=== PATIENT | male | born 1960 | race Caucasian/White ===

== ENCOUNTER 2025-03-11 17:32 | Observation (INO) | payer OTHER ==
--- NOTE | 2025-03-11 17:45 | ED ---
General Adult HPI - General Chief complaint: Chest Pain Stated complaint: Syncope Time Seen by Provider: 03/11/25 17:44 Source: patient, family Mode of arrival: wheelchair Limitations: no limitations - History of Present Illness Initial comments: Patient brought to the ED by his for evaluation. Patient states that he was fishing on [place] at about noon today when he suddenly started to "not feel well". Patient states that he sat down and then became lightheaded and diaphoretic and had a syncopal episode. states that they could not feel a pulse, so they started CPR on the patient. states that the patient regained consciousness after about a minute or so. She states that the captain then brought their boat back to shore, and she drove the patient straight to our hospital. Patient states that he has been having some mild chest pressure and dyspnea intermittently over the past 4 days, and he admits to having mild chest pressure at present. Patient also states that he has felt nauseated and has been vomiting since his syncopal episode earlier today. Patient states that he took aspirin 325 mg PO x 2 earlier today. Patient states that he had 2 cardiac stents placed a little over a year ago. Patient fever or chills, headache, focal numbness/weakness/neuro deficit, neck/arm/jaw/back pain, pleuritic pain, cough or cold symptoms, palpitations, abdominal pain, diarrhea or constipation, bloody or melanotic stool, hematemesis, dysuria or urinary symptoms, leg or calf swelling or pain, or any other symptoms or complaints. - Related Data Home Medications Medication Instructions Recorded Confirmed ALPRAZolam [Xanax] 0.5 mg PO BID PRN 03/11/25 03/11/25 Clopidogrel [Plavix] 75 mg PO DAILY 03/11/25 03/11/25 Losartan/Hydrochlorothiazide 1 tab PO DAILY 03/11/25 03/11/25 [Hyzaar 100-25 Tablet] Metoprolol Succinate (ER) [Toprol 50 mg PO HS 03/11/25 03/11/25 Xl] Pantoprazole [Protonix] 40 mg PO DAILY 03/11/25 03/11/25 Rosuvastatin [Crestor] 20 mg PO HS 03/11/25 03/11/25 traZODone HCL [Desyrel] 50 mg PO 03/11/25 03/11/25 Allergies Allergy/AdvReac Type Severity Reaction Status Date / Time No Known Allergies Allergy Verified 03/11/25 19:24 Review of Systems ROS Statement: Those systems with pertinent positive or pertinent negative responses have been documented in the HPI. ROS Other: All systems not noted in ROS Statement are negative. Past Medical History Past Medical History: Atrial Fibrillation, Cancer, Hypertension Additional Past Medical History / Comment(s): melanoma. History of Any Multi-Drug Resistant Organisms: None Reported Past Surgical History: Heart Catheterization With Stent Past Psychological History: No Psychological Hx Reported Smoking Status: Never smoker Past Alcohol Use History: Rare Past Drug Use History: None Reported General Exam Limitations: no limitations General appearance: alert, in no apparent distress Head exam: Present: atraumatic Eye exam: Present: normal appearance ENT exam: Present: mucous membranes moist Neck exam: Present: other (Trachea is in midline) Respiratory exam: Present: normal lung sounds bilaterally. Absent: respiratory distress, wheezes, rales, rhonchi, stridor, chest wall tenderness Cardiovascular Exam: Present: regular rate, normal rhythm, normal heart sounds, other (Normal radial pulses bilaterally) GI/Abdominal exam: Present: soft. Absent: distended, tenderness, guarding Extremities exam: Present: other (Negative Homans' sign bilaterally). Absent: tenderness, pedal edema, calf tenderness Neurological exam: Present: alert, oriented X3. Absent: motor sensory deficit Skin exam: Present: warm, dry, normal color Course Vital Signs 03/11/25 03/11/25 17:35 19:53 Temperature 98.7 F Pulse Rate 76 55 L Respiratory 18 18 Rate Blood Pressure 95/60 96/66 O2 Sat by Pulse 98 98 Oximetry - Reevaluation(s) Reevaluation #1: 03/11/25 19:34 Case, H&P, test results and prehospital/ED management were discussed with TIMBER SELECTOR Kimmy Huang. She accepts hospital admission on behalf of [facility]. She agrees with cardiology consultation. She has no further recommendations at this time. 03/11/25 20:35 Given that the patient's reports initiating CPR on the patient, Dr. Castro (commercial real estate assistant) was contacted from the ED to discuss if the patient should be admitted to the ICU. Case and test results were discussed with Dr. Castro. He does not feel that ICU admission is warranted, and he recommends admitting the patient to the telemetry floor at this time. 03/11/25 20:47 Patient states that he feels fine at this time and he denies having any symptoms currently. Patient remains alert and breathing comfortably. Patient and are aware of the patient's test results and my discussions as above. Patient agrees with hospital admission at this time. EKG Findings - EKG Comments: EKG Findings:: ED physician interpretation (interpreted by me): Normal sinus rhythm, ventricular rate of 73 bpm, no ectopy, normal IN and QRS intervals, slightly prolonged QTc interval of 462 ms, normal axis, nonspecific ST abnormality, no ST elevation Medical Decision Making - Medical Decision Making Was pt. sent in by a medical professional or institution (, PA, TIMBER SELECTOR, urgent care, hospital, or shelter...) When possible be specific @ -No Did you speak to anyone other than the patient for history (EMS, parent, family, police, friend...)? What history was obtained from this source @ -History was also obtained from the patient's . Did you review nursing and triage notes (agree or disagree)? Why? @ -I reviewed and agree with nursing and triage notes Were old charts reviewed (outside hosp., previous admission, EMS record, old EKG, old radiological studies, urgent care reports/EKG's, shelter records)? Report findings @ -No old charts were reviewed Differential Diagnosis (chest pain, altered mental status, abdominal pain women, abdominal pain men, vaginal bleeding, weakness, fever, dyspnea, syncope, headache, dizziness, GI bleed, back pain, seizure, CVA, palpatations, mental health, musculoskeletal)? @ -Differential Syncope: Valvular disease, hypertrophic cardiomyopathy, tamponade, tachycardia, bradycard ia, UT, dysrhythmia, hypovolemia, heat exhaustion, CAD, cardiac arrest, anemia, hypoglycemia, this is not meant to be an all-inclusive list. EKG interpreted by me (3pts min.). @ -As above X-rays interpreted by me (1pt min.). @ -Chest x-ray was reviewed myself and shows no acute cardiopulmonary disease. I agree with the radiologist's interpretation as above. CT interpreted by me (1pt min.). @ -None done U/S interpreted by me (1pt. min.). @ -None done What testing was considered but not performed or refused? (CT, X-rays, U/S, labs)? Why? @ -None What meds were considered but not given or refused? Why? @ -None Did you discuss the management of the patient with other professionals (shadi dodson i.e. , PA, TIMBER SELECTOR, lab, RT, psych nurse, social worker school, head of human resources, teacher, weapons officer naval activity, gearcase assembler)? Give summary @ -As above. Was smoking cessation discussed for >3mins.? @ -No Was critical care preformed (if so, how long)? @ -Yes, 35 minutes. Were there social determinants of health that impacted care today? How? (Homelessness, low income, unemployed, alcoholism, drug addiction, tra nsportation, low edu. Level, literacy, decrease access to med. care, correction, rehab)? @ -No Was there de-escalation of care discussed even if they declined (Discuss DNR or withdrawal of care, Hospice)? DNR status @ -No What co-morbidities impacted this encounter? (DM, HTN, Smoking, COPD, CAD, Cancer, CVA, ARF, Chemo, Hep., AIDS, mental health diagnosis, sleep apnea, morbid obesity)? @ -None Was patient admitted / discharged? Hospital course, mention meds given and route, prescriptions, significant lab abnormalities, going to OR and other pertinent info. @ -Patient's EKG and chest x-ray are fairly unremarkable. Patient's labs demonstrate renal insufficiency, but are otherwise fairly unremarkable. Patient's troponin is negative. Patient states that he took 2 full dose aspirin prior to coming to the ED today. Given the patient's cardiac history, chest pain and reported syncope, will admit the patient to the hospital for cardiac monitoring, serial troponins, cardiology consultation and further evaluation. Patient agrees with this plan. DESIREE Huang has accepted hospital admis eliezer. Dr. Castro (commercial real estate assistant) was contacted from the ED test discussed need for ICU admission given CPR was initiated by the patient's family, but he does not feel that ICU admission is indicated at this time. Undiagnosed new problem with uncertain prognosis? @ -No Drug Therapy requiring intensive monitoring for toxicity (Heparin, Nitro, Insulin, Cardizem)? @ -No Were any procedures done? @ -No Diagnosis/symptom? @ -Chest pain, syncope Acute, or Chronic, or Acute on Chronic? @ -Acute Uncomplicated (without systemic symptoms) or Complicated (systemic symptoms)? @ -Default Side effects of treatment? @ -No Exacerbation, Progression, or Severe Exacerbation? @ -No Poses a threat to life or bodily function? How? (Chest pain, USA, UT, pneumonia, PE, COPD, DKA, ARF, appy, cholecystitis, CVA, Diverticulitis, Homicidal, Suicidal, threat to staff... and all critical care pts) @ -Possibly Diagnosis/symptom? @ -Renal insufficiency Acute, or Chronic, or Acute on Chronic? @ -Default Uncomplicated (without systemic symptoms) or Complicated (systemic symptoms)? @ -Default Side effects of treatment? @ -None Exacerbation, Progression, or Severe Exacerbation] @ -No Poses a threat to life or bodily function? @ -No - Lab Data Result diagrams: 03/11/25 18:09 03/11/25 18:09 Lab Results 03/11/25 03/11/25 03/11/25 Range/Units 18:09 18:09 18:09 WBC 9.15 (4.50-10.00) 10*3/uL RBC 4.60 (4.40-5.60) 10*6/uL Hgb 14.4 (13.0-17.0) g/dL Hct 40.1 (39.6-50.0) % MCV 87.2 (80.0-97.0) fL MCH 31.3 (27.0-32.0) pg MCHC 35.9 (32.0-37.0) g/dL Plt Count 161 (140-440) 10*3/uL MPV 10.0 (9.5-12.2) fL Immature Gran % (Auto) 0.2 % Neutrophils % 79.2 % Lymphocytes % 14.1 % Monocytes % 6.1 % Eosinophils % 0.1 % Basophils % 0.3 % Immature Gran # 0.02 (0.00-0.04) 10*3/uL Neutrophils # 7.24 (1.80-7.70) 10*3/uL Lymphocytes # 1.29 (0.90-5.00) 10*3/uL Monocytes # 0.56 (0.20-1.00) 10*3/uL Eosinophils # 0.01 L (0.04-0.35) 10*3/uL Basophils # 0.03 (0.00-0.10) 10*3/uL PT 10.9 (10.0-12.5) sec INR 1.0 (<1.2) APTT 22.4 (22.0-30.0) sec Sodium 135 L (137-145) mmol/L Potassium 4.2 (3.5-5.1) mmol/L Chloride 101 (98-107) mmol/L Carbon Dioxide 19 L (22-30) mmol/L Anion Gap 15 mmol/L BUN 33 H (9-20) mg/dL Creatinine 2.73 H (0.66-1.25) mg/dL Est GFR (CKD-EPI)AfAm 28 (>60 ml/min/1.73 sqM) Est GFR (CKD-EPI)NonAf 24 (>60 ml/min/1.73 sqM) Glucose 120 H (74-99) mg/dL Plasma Lactic Acid Castillo (0.7-2.0) mmol/L Calcium 9.9 (8.4-10.2) mg/dL Magnesium 2.0 (1.6-2.3) mg/dL Total Bilirubin 3.1 H (0.2-1.3) mg/dL AST 19 (17-59) U/L ALT 22 (4-49) U/L Alkaline Phosphatase 52 (38-126) U/L Troponin I (0.000-0.034) ng/mL NT-Pro-B Natriuret Pep 327 pg/mL Total Protein 7.4 (6.3-8.2) g/dL Albumin 4.7 (3.5-5.0) g/dL 03/11/25 03/11/25 Range/Units 18:09 18:09 WBC (4.50-10.00) 10*3/uL RBC (4.40-5.60) 10*6/uL Hgb (13.0-17.0) g/dL Hct (39.6-50.0) % MCV (80.0-97.0) fL MCH (27.0-32.0) pg MCHC (32.0-37.0) g/dL Plt Count (140-440) 10*3/uL MPV (9.5-12.2) fL Immature Gran % (Auto) % Neutrophils % % Lymphocytes % % Monocytes % % Eosinophils % % Basophils % % Immature Gran # (0.00-0.04) 10*3/uL Neutrophils # (1.80-7.70) 10*3/uL Lymphocytes # (0.90-5.00) 10*3/uL Monocytes # (0.20-1.00) 10*3/uL Eosinophils # (0.04-0.35) 10*3/uL Basophils # (0.00-0.10) 10*3/uL PT (10.0-12.5) sec INR (<1.2) APTT (22.0-30.0) sec Sodium (137-145) mmol/L Potassium (3.5-5.1) mmol/L Chloride (98-107) mmol/L Carbon Dioxide (22-30) mmol/L Anion Gap mmol/L BUN (9-20) mg/dL Creatinine (0.66-1.25) mg/dL Est GFR (CKD-EPI)AfAm (>60 ml/min/1.73 sqM) Est GFR (CKD-EPI)NonAf (>60 ml/min/1.73 sqM) Glucose (74-99) mg/dL Plasma Lactic Acid Castillo 0.9 (0.7-2.0) mmol/L Calcium (8.4-10.2) mg/dL Magnesium (1.6-2.3) mg/dL Total Bilirubin (0.2-1.3) mg/dL AST (17-59) U/L ALT (4-49) U/L Alkaline Phosphatase (38-126) U/L Troponin I <0.012 (0.000-0.034) ng/mL NT-Pro-B Natriuret Pep pg/mL Total Protein (6.3-8.2) g/dL Albumin (3.5-5.0) g/dL - Radiology Data Chest x-ray: Critical Care Time Critical Care Time: Yes Total Critical Care Time: 35 Disposition Clinical Impression: Chest pain, Syncope, Renal insufficiency Disposition: ADMITTED IP TO THIS [facility] Condition: Stable Is patient prescribed a controlled substance at d/c from ED?: No Time of Disposition: 20:37
[2025-03-11 18:15] LABS: Basophils # (A) 0.03 10*3/uL (0.00-0.10); Basophils % (A) 0.3 %; Eosinophils # (A) 0.01 10*3/uL (0.04-0.35); Eosinophils % (A) 0.1 %; HCT 40.1 % (39.6-50.0); HGB 14.4 g/dL (13.0-17.0); Lymphocytes # (A) 1.29 10*3/uL (0.90-5.00); Lymphocytes % (A) 14.1 %; MCH 31.3 pg (27.0-32.0); MCHC 35.9 g/dL (32.0-37.0); MCV 87.2 fL (80.0-97.0); Monocytes # (A) 0.56 10*3/uL (0.20-1.00); Monocytes % (A) 6.1 %; Neutrophils # (A) 7.24 10*3/uL (1.80-7.70); Neutrophils % (A) 79.2 %; Platelet Count 161 10*3/uL (140-440); RBC 4.60 10*6/uL (4.40-5.60); RDW 12.4 % (11.5-14.5); WBC 9.15 10*3/uL (4.50-10.00)
[2025-03-11 18:29] LABS: ALT 22 U/L (4-49); AST 19 U/L (17-59); African American GFR (CKD) 28 (>60 ml/min/1.73 sqM); Albumin 4.7 g/dL (3.5-5.0); Alkaline Phosphatase 52 U/L (38-126); Anion Gap 15 mmol/L; Blood Urea Nitrogen 33 mg/dL (9-20); Calcium 9.9 mg/dL (8.4-10.2); Carbon Dioxide 19 mmol/L (22-30); Chloride 101 mmol/L (98-107); Glucose 120 mg/dL (74-99); Magnesium 2.0 mg/dL (1.6-2.3); Non-African American GFR(CKD) 24 (>60 ml/min/1.73 sqM); Potassium 4.2 mmol/L (3.5-5.1); Sodium 135 mmol/L (137-145); Total Protein 7.4 g/dL (6.3-8.2)
[2025-03-11 18:31] LABS: INR 1.0 (<1.2); Partial Thromboplastin Time 22.4 sec (22.0-30.0); Prothrombin Time 10.9 sec (10.0-12.5)
[2025-03-11 18:37] LABS: NT-Pro-B-Type Natriuretic Pept 327 pg/mL
--- NOTE | 2025-03-11 18:57 | XR ---
EXAMINATION TYPE: XR chest 2V DATE OF EXAM: 03/11/2025 6:34 PM COMPARISON: None. CLINICAL INDICATION: Male, 64 years old with history of Chest Pain: Shortness of breath TECHNIQUE: XR chest 2V views of the chest are obtained. FINDINGS: Scattered senescent parenchymal changes noted. Hyperinflation compatible with COPD. No evidence for infiltrate. No evidence for atelectasis. Heart size is stable. Mediastinal structures are stable and grossly unremarkable. No evidence for hilar prominence. Degenerative changes dorsal spine. IMPRESSION: 1. No evidence for acute pulmonary disease. [facility], , 03/11/2025 6:54 PM
[2025-03-11] MEDS: ONDANSETRON 4 MG/2 ML VIAL IVP STA (18:59)
[2025-03-11] MEDS: SODIUM CHLORIDE 0.9% 1,000 ML IV ONE (19:02)
[2025-03-11] MEDS ORDERED: NALOXONE 0.4 MG/ML 1 ML VIAL IV PRN (20:37)
[2025-03-12 06:49] LABS: Basophils # (A) 0.02 10*3/uL (0.00-0.10); Basophils % (A) 0.3 %; Eosinophils # (A) 0.07 10*3/uL (0.04-0.35); Eosinophils % (A) 1.2 %; HCT 40.2 % (39.6-50.0); HGB 14.0 g/dL (13.0-17.0); Lymphocytes # (A) 1.46 10*3/uL (0.90-5.00); Lymphocytes % (A) 24.3 %; MCH 31.3 pg (27.0-32.0); MCHC 34.8 g/dL (32.0-37.0); MCV 89.9 fL (80.0-97.0); Monocytes # (A) 0.39 10*3/uL (0.20-1.00); Monocytes % (A) 6.5 %; Neutrophils # (A) 4.07 10*3/uL (1.80-7.70); Neutrophils % (A) 67.5 %; Platelet Count 147 10*3/uL (140-440); RBC 4.47 10*6/uL (4.40-5.60); RDW 12.5 % (11.5-14.5); WBC 6.02 10*3/uL (4.50-10.00)
[2025-03-12 07:04] LABS: ALT 18 U/L (4-49); AST 19 U/L (17-59); African American GFR (CKD) 42 (>60 ml/min/1.73 sqM); Albumin 4.5 g/dL (3.5-5.0); Alkaline Phosphatase 46 U/L (38-126); Anion Gap 8 mmol/L; Blood Urea Nitrogen 30 mg/dL (9-20); Calcium 9.4 mg/dL (8.4-10.2); Carbon Dioxide 26 mmol/L (22-30); Chloride 103 mmol/L (98-107); Glucose 120 mg/dL (74-99); Non-African American GFR(CKD) 37 (>60 ml/min/1.73 sqM); Potassium 4.5 mmol/L (3.5-5.1); Sodium 137 mmol/L (137-145); Total Protein 6.8 g/dL (6.3-8.2)
[2025-03-12] MEDS ORDERED: ALPRAZolam 0.5 MG TAB PO PRN (08:32)
[2025-03-12] MEDS ORDERED: NON FORMULARY DRUG (Losartan/Hydrochlorothiazide [Hyzaar 100-25 Tablet] 1 EACH Tablet) PO SCH (09:00)
[2025-03-12] MEDS: CLOPIDOGREL 75 MG TAB PO SCH (09:21)
[2025-03-12] MEDS: PANTOPRAZOLE 40 MG TABLET PO SCH (09:21)
[2025-03-12] MEDS: SODIUM CHLORIDE 0.9% 1,000 ML IV SCH (09:22)
--- NOTE | 2025-03-12 09:36 | P.CRDCN ---
History of Present Illness Consult date: 03/12/25 History of present illness: The patient is a pleasant 64-year-old gentleman with a past medical history significant for CAD with prior stenting performed at [place] with unknown details as well as hypertension and dyslipidemia and anxiety. He was in his usual state of health yesterday when he was at fishing trip and suddenly he did have an episode of loss of consciousness. Before that and for the last few weeks he has been experiencing symptoms of chest discomfort and shortness of breath appear to be exertional and nonexertional with no dizziness or lightheadedness and no feeling of heart racing or fluttering. He was brought to the emergency department where further evaluation was performed including an EKG showing sinus mechanism with no significant ST or T wave abnormalities and troponin came to be unremarkable and the rest of the workup came into unre markable beside creatinine came to be elevated but suddenly has been trending down could be secondary to dehydration. The physical examination is remarkable for pansystolic murmur at the apical area with the rest of the examination appears to be unremarkable Assessment An episode of syncope could be secondary to dehydration versus vasovagal Significant systolic murmur on examination CAD as described above Acute renal failure which has been improving Plan Continue the current medical regimen Obtain an echo Further recommendation to follow the echocardiogram Past Medical History Past Medical History: Atrial Fibrillation, Cancer, Hypertension Additional Past Medical History / Comment(s): melanoma. History of Any Multi-Drug Resistant Organisms: None Reported Past Surgical History: Heart Catheterization With Stent Past Psychological History: No Psychological Hx Reported Smoking Status: Never smoker Past Alcohol Use History: Rare Past Drug Use History: None Reported Medications and Allergies Home Medications Medication Instructions Recorded Confirmed Type ALPRAZolam [Xanax] 0.5 mg PO BID PRN 03/11/25 03/11/25 History Clopidogrel [Plavix] 75 mg PO DAILY 03/11/25 03/11/25 History Losartan/Hydrochlorothiazide 1 tab PO DAILY 03/11/25 03/11/25 History [Hyzaar 100-25 Tablet] Metoprolol Succinate (ER) [Toprol 50 mg PO HS 03/11/25 03/11/25 History Xl] Pantoprazole [Protonix] 40 mg PO DAILY 03/11/25 03/11/25 History Rosuvastatin [Crestor] 20 mg PO HS 03/11/25 03/11/25 History traZODone HCL [Desyrel] 50 mg PO HS 03/11/25 03/11/25 History Allergies Allergy/AdvReac Type Severity Reaction Status Date / Time No Known Allergies Allergy Verified 03/11/25 19:24 Physical Exam Vitals: Vital Signs Temp Pulse Resp BP Pulse Ox 03/12/25 08:17 60 16 93/59 95 03/12/25 07:16 98.3 F 70 16 114/70 97 03/12/25 06:25 54 L 03/12/25 06:24 47 L 17 93/56 97 03/11/25 23:53 56 L 17 100/67 96 03/11/25 19:53 55 L 18 96/66 98 03/11/25 17:35 98.7 F 76 18 95/60 98 Intake and Output 03/11/25 03/12/25 03/12/25 22:59 06:59 14:59 Other: Weight 88.451 kg Results 03/12/25 06:22 03/12/25 06:22 Cardiac Enzymes 03/11/25 03/11/25 03/11/25 Range/Units 18:09 18:09 22:13 AST 19 (17-59) U/L Troponin I <0.012 <0.012 (0.000-0.034) ng/mL 03/12/25 03/12/25 Range/Units 00:00 06:22 AST 19 (17-59) U/L Troponin I <0.012 (0.000-0.034) ng/mL Coagulation 03/11/25 Range/Units 18:09 PT 10.9 (10.0-12.5) sec APTT 22.4 (22.0-30.0) sec CBC 03/11/25 03/12/25 Range/Units 18:09 06:22 WBC 9.15 6.02 (4.50-10.00) 10*3/uL RBC 4.60 4.47 (4.40-5.60) 10*6/uL Hgb 14.4 14.0 (13.0-17.0) g/dL Hct 40.1 40.2 (39.6-50.0) % Plt Count 161 147 (140-440) 10*3/uL Comprehensive Metabolic Panel 03/11/25 03/12/25 Range/Units 18:09 06:22 Sodium 135 L 137 (137-145) mmol/L Potassium 4.2 4.5 (3.5-5.1) mmol/L Chloride 101 103 (98-107) mmol/L Carbon Dioxide 19 L 26 (22-30) mmol/L BUN 33 H 30 H (9-20) mg/dL Creatinine 2.73 H 1.92 H (0.66-1.25) mg/dL Glucose 120 H 120 H (74-99) mg/dL Calcium 9.9 9.4 (8.4-10.2) mg/dL AST 19 19 (17-59) U/L ALT 22 18 (4-49) U/L Alkaline Phosphatase 52 46 (38-126) U/L Total Protein 7.4 6.8 (6.3-8.2) g/dL Albumin 4.7 4.5 (3.5-5.0) g/dL Current Medications Generic Name Dose Route Start Last Admin Trade Name Freq PRN Reason Stop Dose Admin Alprazolam 0.5 mg 03/12/25 08:32 Alprazolam 0.5 Mg Tab PO BID PRN Anxiety Aspirin 81 mg 03/12/25 09:45 Aspirin 81 Mg PO DAILY CARLOS Atorvastatin Calcium 40 mg 03/12/25 21:00 Atorvastatin 40 Mg Tab PO HS CARLOS Clopidogrel Bisulfate 75 mg 03/12/25 09:00 03/12/25 09:21 Clopidogrel 75 Mg Tab PO 75 mg DAILY CARLOS Administration Sodium Chloride 1,000 mls @ 100 mls/hr 03/12/25 08:45 03/12/25 09:22 Saline 0.9% IV 100 mls/hr .Q10H CARLOS Administration Naloxone HCl 0.2 mg 03/11/25 20:37 Naloxone 0.4 Mg/Ml 1 Ml Vial IV Q2M PRN Opioid Reversal Pantoprazole Sodium 40 mg 03/12/25 09:00 03/12/25 09:21 Pantoprazole 40 Mg Tablet PO 40 mg [id number] CARLOS Administration Trazodone HCl 50 mg 03/12/25 21:00 Trazodone Hcl 50 Mg Tab PO HS CARLOS Intake and Output 03/11/25 03/12/25 03/12/25 22:59 06:59 14:59 Other: Weight 88.451 kg 03/12/25 06:22 03/12/25 06:22
[2025-03-12] MEDS: ASPIRIN 81 MG PO SCH (10:09)
[2025-03-12] MEDS: HEPARIN SODIUM,PORCINE 5,000 UNIT/ML 1 ML VIAL SQ SCH (10:10)
--- NOTE | 2025-03-12 14:02 | P.HPIM ---
History of Present Illness H&P Date: 03/12/25 Patient is a 64-year-old male with A-fib (Plavix), hypertension, CAD with x 2 stent placement (January and February 2024 Dr Cano), anxiety here for evaluation of loss of consciousness. Patient reported that he was fishing on [place] about 12 noon on the day of admission when he suddenly began "not to feel well". He noted associated lightheadedness and diaphoresis. He then lost consciousness and his could not feel a pulse and they began CPR. Reported he was seen that he did not hit his head. He regained consciousness after a minute and he began to have nausea and multiple episodes of nonbloody nonbilious vomiting and his "head was spinning". Patient also reported that over the past 4 days, he has been having episodes of minute to hours of midsternal chest pressure nonradiating with intermittent a shortness of breath. Denied fever, chills, focal weakness, palpitations,extremity swelling, abdominal pain, diarrhea, constipation, dysuria, hematuria, urinary frequency, loss of defecation or urination control, vision changes, speech changes. On admission: Vitals: Temp 98.7 F, WI 76, BP 95/60, RR 18, O2 saturation 98% on room Labs: WBC 9.15, hemoglobin 14.4, platelets 161, sodium 135, potassium 4.2, bicarb 19, BUN 33, creatinine 2.7, glucose 120, total bilirubin 3.1, magnesium 2, troponin less than 0.0 12, proBNP 11/30/2026. Liver enzymes WNL. Coagulation panel WNL. Imaging: EKG independently interpreted showed sinus rhythm with a rate of 73 bpm, noted PAC, normal axis, no ST-T changes, QTc 462 MS. Chest x-ray showed no evidence for acute pulmonary disease. ED documentation reviewed. Review of systems: Pertinent positives and negatives as discussed in HPI, a complete review of systems was performed and all other systems are negative. Social history: Tobacco: Never smoker Alcohol: Occasional alcohol intake Recreational drugs: Denied history of recreational or illicit drug use Travel: No recent prolonged travel Physical examination: Vital signs reviewed General: non toxic, no distress, appears at stated age, on room air Derm: no unusual rashes/lesions, warm Head: atraumatic, normocephalic, symmetric Eyes: EOMI, anicteric sclera, pupils equal round reactive to light ENT: Nose and ears atraumatic Neck: No cervical lymphadenopathy, trachea midline, supple Mouth: no lip lesion, mucus membranes moist Cardiovascular: S1S2 reg, 3/6 holosystolic murmur heard on Right ICS and apical area Lungs: CTA bilateral, no rhonchi, no rales, no accessory muscle use Abdominal: soft, nondistended, nontender to palpation, no guarding Ext: muscle strength 5 out of 5 in all 4 extremities grossly, no gross muscle atrophy, no contractures, positive dorsalis pedis pulse bilateral, no edema Neuro: CN II-XI grossly intact, no gross focal neuro deficits Psych: Alert and oriented x 3, appropriate affect and mood Assessment/Plan: 64-year-old male with A-fib on anticoagulation, CAD and anxiety here for evaluation of loss of consciousness found to have murmur on physical examination, with THAIS and hypotensive on admission. The patient is admitted with an anticipated greater than than 2 midnight stay for evaluation of syncope and THAIS Active: # Syncope, rule out cardiac, metabolic, vasovagal causes #Sinus bradycardia #Holosystolic murmur in right ICS and apex EKG independently interpreted showed sinus rhythm with noted PAC, no ST-T garibay es, QTc 462 MS Chest x-ray showed no evidence for acute pulmonary disease. Cardiac telemetry Supplemental oxygen as needed Check orthostatics Check d-dimer Hold antihypertensives Echocardiogram ordered Cardiology consulted in the ED #Acute Kidney Injury, prerenal BUN 33, creatinine 2.7. Now improved creatinine to 1.9 Monitor UO and renal function Avoid nephrotoxic agents IVF 0.9 normal saline 100 cc/h Chronic Conditions: # A-fib #Hypertension #CAD with x 2 stent placement #Anxiety Continue home clopidogrel, rosuvastatin, pantoprazole, trazodone and alprazolam Hold Hyzaar DVT ppx: Heparin subcu CODE STATUS: Full Discussed with: Patient Anticipated discharge place: Home Kimmy Lerma MD PGY-1 Internal Medicine Dictation was produced using [employer] dictation software. please excuse any grammatical, word or spelling errors. Attestation I have seen and examined this patient with my resident , discussed the same with the resident/ATTILA, and agree with the dictator's assessment and plan as written Dr. Moises ferrer Past Medical History Past Medical History: Atrial Fibrillation, Cancer, Hypertension Additional Past Medical History / Comment(s): melanoma. History of Any Multi-Drug Resistant Organisms: None Reported Past Surgical History: Heart Catheterization With Stent Past Psychological History: No Psychological Hx Reported Smoking Status: Never smoker Past Alcohol Use History: Rare Past Drug Use History: None Reported - Past Family History Father Family Medical History: Cancer, Diabetes Mellitus, Myocardial Infarction ([place]) Additional Family Medical History / Comment(s): prostate and skin cancer Mother Family Medical History: Cancer Additional Family Medical History / Comment(s): lung cancer Medications and Allergies Home Medications Medication Instructions Recorded Confirmed Type ALPRAZolam [Xanax] 0.5 mg PO BID PRN 03/11/25 03/11/25 History Clopidogrel [Plavix] 75 mg PO DAILY 03/11/25 03/11/25 History Losartan/Hydrochlorothiazide 1 tab PO DAILY 03/11/25 03/11/25 History [Hyzaar 100-25 Tablet] Metoprolol Succinate (ER) [Toprol 50 mg PO HS 03/11/25 03/11/25 History Xl] Pantoprazole [Protonix] 40 mg PO DAILY 03/11/25 03/11/25 History Rosuvastatin [Crestor] 20 mg PO HS 03/11/25 03/11/25 History traZODone HCL [Desyrel] 50 mg PO HS 03/11/25 03/11/25 History Allergies Allergy/AdvReac Type Severity Reaction Status Date / Time No Known Allergies Allergy Verified 03/11/25 19:24 Physical Exam Vitals: Vital Signs Temp Pulse Resp BP Pulse Ox 03/12/25 07:16 98.3 F 70 16 114/70 97 03/12/25 06:25 54 L 03/12/25 06:24 47 L 17 93/56 97 03/11/25 23:53 56 L 17 100/67 96 03/11/25 19:53 55 L 18 96/66 98 03/11/25 17:35 98.7 F 76 18 95/60 98 Intake and Output 03/11/25 03/12/25 03/12/25 22:59 06:59 14:59 Other: Weight 88.451 kg Results CBC & Chem 7: 03/12/25 06:22 03/13/25 06:46 Labs: Abnormal Lab Results - Last 24 Hours (Table) 03/11/25 03/11/25 03/12/25 Range/Units 18:09 18:09 06:22 Eosinophils # 0.01 L (0.04-0.35) 10*3/uL Sodium 135 L (137-145) mmol/L Carbon Dioxide 19 L (22-30) mmol/L BUN 33 H 30 H (9-20) mg/dL Creatinine 2.73 H 1.92 H (0.66-1.25) mg/dL Glucose 120 H 120 H (74-99) mg/dL Total Bilirubin 3.1 H 2.8 H (0.2-1.3) mg/dL
[2025-03-12] MEDS: ATORVASTATIN 40 MG TAB PO SCH (20:03)
[2025-03-12] MEDS ORDERED: METOPROLOL SUCCINATE (ER) 50 MG TAB.ER.24H PO SCH (21:00)
[2025-03-13 08:07] LABS: African American GFR (CKD) 75 (>60 ml/min/1.73 sqM); Anion Gap 12 mmol/L; Blood Urea Nitrogen 18 mg/dL (9-20); Calcium 9.1 mg/dL (8.4-10.2); Carbon Dioxide 23 mmol/L (22-30); Chloride 105 mmol/L (98-107); Glucose 117 mg/dL (74-99); Non-African American GFR(CKD) 65 (>60 ml/min/1.73 sqM); Potassium 4.1 mmol/L (3.5-5.1); Sodium 140 mmol/L (137-145)
[2025-03-13 12:35] VITALS: TEMP 98.7
[2025-03-13 12:40] VITALS: BP 119/75; PULSE 82; RESP 16
--- NOTE | 2025-03-13 14:28 | P.PN ---
Subjective Progress Note Date: 03/13/25 History of present illness: The patient is a pleasant 64-year-old gentleman with a past medical history significant for CAD with prior stenting performed at [place] with unknown d etails as well as hypertension and dyslipidemia and anxiety. He was in his usual state of health yesterday when he was at fishing trip and suddenly he did have an episode of loss of consciousness. Before that and for the last few weeks he has been experiencing symptoms of chest discomfort and shortness of breath appear to be exertional and nonexertional with no dizziness or lightheadedness and no feeling of heart racing or fluttering. He was brought to the emergency department where further evaluation was performed including an EKG showing sinus mechanism with no significant ST or T wave abnormalities and troponin came to be unremarkable and the rest of the workup came into unremarkable beside creatinine came to be elevated but suddenly has been trending down could be secondary to dehydration. The physical examination is remarkable for pansystolic murmur at the apical area with the rest of the examination appears to be unremarkable 03/13/2025 Patient seen and examined. Patient is currently in sinus rhythm with PACs. Echocardiogram preliminary report reviewed by Dr. Chavez with the patient. Recommended stress test while here in the hospital but patient would like to follow-up with his own business representative and have this done as an outpatient. Heart rate in the 60s to 80s, blood pressure 138/75, pulse ox 97% on room air. Repeat blood work reveals electrolytes are normal, creatinine 1.19. The physical examination is remarkable for pansystolic murmur at the apical area with the rest of the examination appears to be unremarkable Assessment An episode of syncope could be secondary to dehydration versus vasovagal Significant systolic murmur on examination CAD as described above Acute renal failure which has been improving Plan Continue the current medical regimen Patient will follow-up with his primary business representative for outpatient stress testing. Patient is cleared for discharge from cardiology perspective. Nurse practitioner note has been reviewed, I agree with documented findings and plan of care. Patient was seen and examined. Objective - Vital Signs Vital signs: Vital Signs Temp 97.5 F L 03/13/25 03:04 Pulse 72 03/13/25 03:04 Resp 16 03/13/25 03:04 BP 117/73 03/13/25 03:04 Pulse Ox 95 03/13/25 03:04 FiO2 Intake & Output 06/30/25 07/01/25 07/01/25 18:59 06:59 18:59 Intake Total 20 Output Total 200 Balance -180 Weight 88.451 kg 86.4 kg Intake: IV 20 Invasive Line 1 20 Output: Urine 200 Other: Voiding Method Toilet # Voids 1 - Labs CBC & Chem 7: 03/12/25 06:22 03/13/25 06:46 Labs: Abnormal Lab Results - Last 24 Hours (Table) 03/13/25 Range/Units 06:46 Glucose 117 H (74-99) mg/dL
--- NOTE | 2025-03-13 15:41 | P.DS ---
Providers Date of admission: 03/11/25 20:37 Attending physician: Nate Meredith Consults: 03/11/25 19:28 Consult Physician Urgent Consulting Provider: Shantanu Chavez Consult Reason/Comments: chest pain, syncope Do you want consulting provider notified?: Yes Primary care physician: Ernie Frost DO Hospital Course: Discharge Diagnosis: #Syncope likely secondary to vasovagal #Sinus bradycardia resolved #Holosystolic murmur in right ICS and apex Hospital Course: 64-year-old gentleman with A-fib on Plavix hypertension CAD with x 2 stent placement (January and February 2024 Dr. Cano), anxiety here for evaluation of loss of consciousness.Patient reported that he was fishing on [place] about 12 noon on the day of admission when he suddenly began "not to feel well". He noted associated lightheadedness and diaphoresis. He then lost consciousness and his could not feel a pulse and they began CPR. Reported he was seen that he did not hit his head. He regained consciousness after a minute and he began to have nausea and multiple episodes of nonbloody nonbilious vomiting and his "head was spinning". Patient also reported that over the past 4 days, he has been having episodes of minute to hours of midsternal chest pressure nonradiating with intermittent a shortness of breath. Denied fever, chills, focal weakness, palpitations,extremity swelling, abdominal pain, diarrhea, constipation, dysuria, hematuria, urinary frequency, loss of defecation or urination control, vision changes, speech changes. In ED, patient found to have a murmur on physical examination. EKG ordered and interpreted as sinus bradycardia. Chest Xray obtained, showing no evidence for pulmonary disease. Labs: WBC 9.15, hemoglobin 14.4, platelets 161, sodium 135, potassium 4.2, bicarb 19, BUN 33, creatinine 2.7, glucose 120, total bilirubin 3.1, magnesium 2, troponin less than 0.0 12. Liver enzymes WNL. Coagulation panel WNL. During the course of his hospital stay, he was placed on telemetry and an echocardiogram was obtained. Patient seeb by Cardiology and discharged home. Advised to be followed up by his PCP and Recreation Counselor as outpatient. Can resume all medications. Advised to resume Hyozine after Cardiology OPD appointment. Patient to be discharged home with self care. Vital signs reviewed and stable: 03/13/25 - Temperature 98.7 F, pulse 82 respiratory rate 16 blood pressure 119/75, SPO2 94 L on room air Pt seen and examined at bedside: Currently well, not in distress and no acute concerns. General: non toxic, no distress, appears at stated age, on room air Derm: no unusual rashes/lesions, warm Head: atraumatic, normocephalic, symmetric Eyes: EOMI, anicteric sclera, pupils equal round reactive to light ENT: Nose and ears atraumatic Neck: No cervical lymphadenopathy, trachea midline, supple Mouth: no lip lesion, mucus membranes moist Cardiovascular: S1S2 reg, 3/6 holosystolic murmur heard on Right ICS and apical area Lungs: CTA bilateral, no rhonchi, no rales, no accessory muscle use Abdominal: soft, nondistended, nontender to palpation, no guarding Ext: muscle strength 5 out of 5 in all 4 extremities grossly, no gross muscle atrophy, no contractures, positive dorsalis pedis pulse bilateral, no edema Neuro: CN II-XI grossly intact, no gross focal neuro deficits Psych: Alert and oriented x 3, appropriate affect and mood A total of 1 hour were spent preparing this complex discarge summary. Patient was discharged on 03/13/2025.. Attestation I have seen and examined this patient with my resident , discussed the same with the resident/ATTILA, and agree with the dictator's assessment and plan as written Dr. Moises ferrer Patient Condition at Discharge: Stable Plan - Discharge Summary Discharge Rx Participant: No New Discharge Prescriptions: Continue Pantoprazole [Protonix] 40 mg PO DAILY Metoprolol Succinate (ER) [Toprol XL] 50 mg PO HS Losartan/Hydrochlorothiazide [Hyzaar 100-25 Tablet] 1 tab PO DAILY Rosuvastatin [Crestor] 20 mg PO HS Clopidogrel [Plavix] 75 mg PO DAILY traZODone HCL [Desyrel] 50 mg PO HS ALPRAZolam [Xanax] 0.5 mg PO BID PRN PRN Reason: Anxiety Discharge Medication List ALPRAZolam [Xanax] 0.5 mg PO BID PRN 03/11/25 [History] Clopidogrel [Plavix] 75 mg PO DAILY 03/11/25 [History] Losartan/Hydrochlorothiazide [Hyzaar 100-25 Tablet] 1 tab PO DAILY 03/11/25 [History] Metoprolol Succinate (ER) [Toprol XL] 50 mg PO HS 03/11/25 [History] Pantoprazole [Protonix] 40 mg PO DAILY 03/11/25 [History] Rosuvastatin [Crestor] 20 mg PO HS 03/11/25 [History] traZODone HCL [Desyrel] 50 mg PO HS 03/11/25 [History] Follow up Appointment(s)/Referral(s): Shantanu Chavez MD [STAFF PHYSICIAN] - 1 Week (Office to call with appointment date and time.) Ernie Frost DO [Primary Care Provider] - 1-2 days Patient Instructions/Handouts: Heat Exhaustion (GEN) Activity/Diet/Wound Care/Special Instructions: Please follow up with PCP and Recreation Counselor Discharge Disposition: HOME SELF-CARE
--- NOTE | 2025-03-14 09:50 | CA ---
Transthoracic Echo Report Name: Xander Chávez Age: 64 Gender: M : 1960 Exam Date: 03/13/2025 08:33 Exam Location: [facility] Ht (in): 66 Wt (lb): 195 Ordering Physician: Kimmy Lerma MD Attending/Referring Phys: Director Of Hotel Karolina Bonner RDCS Procedure CPT: Indications: Syncope Cardiac Hx: Technical Quality: Good Contrast 1: Total Dose (mL): Contrast 2: Total Dose (mL): MEASUREMENTS (Male / Female) Normal Values 2D ECHO LV Diastolic Diameter PLAX 4.5 cm 4.2 - 5.9 / 3.9 - 5.3 cm LV Systolic Diameter PLAX 2.9 cm IVS Diastolic Thickness 1.3 cm 0.6 - 1.0 / 0.6 - 0.9 cm LVPW Diastolic Thickness 1.3 cm 0.6 - 1.0 / 0.6 - 0.9 cm LV Relative Wall Thickness 0.6 RV Internal Dim ED PLAX 4.1 cm LVOT Diameter 2.3 cm LA Systolic Diameter LX 4.6 cm 3.0 - 4.0 / 2.7 - 3.8 cm LV Diastolic Volume MOD BP 98.1 cm??? 67 - 155 / 56 - 104 cm??? LV Systolic Volume MOD BP 22.6 cm??? 22 - 58 / 19 - 49 cm??? LV Ejection Fraction MOD BP 77.0 % >= 55 % LV Diastolic Volume MOD 4C 74.7 cm??? LV Systolic Volume MOD 4C 24.8 cm??? LV Ejection Fraction MOD 4C 66.8 % LV Diastolic Length 4C 7.9 cm LV Systolic Length 4C 6.1 cm LV Diastolic Volume MOD 2C 113.1 cm??? LV Systolic Volume MOD 2C 21.0 cm??? LV Ejection Fraction MOD 2C 81.4 % LV Diastolic Length 2C 9.0 cm LV Systolic Length 2C 6.1 cm LA Volume 76.1 cm??? 18 - 58 / 22 - 52 cm??? LA Volume Index 36.9 cm???/m??? 16 - 28 cm???/m??? DOPPLER AV Peak Velocity 361.7 cm/s AV Peak Gradient 52.3 mmHg MV Area PHT 2.8 cm??? Mitral E Point Velocity 84.8 cm/s Mitral A Point Velocity 83.3 cm/s Mitral E to A Ratio 1.0 MV Deceleration Time 270.6 ms TR Peak Velocity 282.4 cm/s TR Peak Gradient 31.9 mmHg Right Atrial Pressure 5.0 mmHg Pulmonary Artery Systolic Pressu 36.9 mmHg Right Ventricular Systolic Press 36.9 mmHg FINDINGS Left Ventricle Left ventricular ejection fraction is estimated at 65-70%. Mild concentric left ventricular hypertrophy. Left ventricular cavity size normal. Increased LVOT velocity, mean gradient is 55 mmHg. Right Ventricle Right ventricular dilatation. Mild pulmonary hypertension. Right ventricular systolic pressure estimated at 37 mm hg. Right Atrium Normal right atrial size. Left Atrium Mildly increased left atrial diameter. Moderately increased left atrial volume. Mitral Valve Mitral annular calcification. . No mitral stenosis. Trace mitral regurgitation. Aortic Valve Trileaflet aortic valve. No aortic stenosis. No aortic regurgitation. Tricuspid Valve Structurally normal tricuspid valve. No tricuspid stenosis. Trace tricuspid regurgitation. Pulmonic Valve Structurally normal pulmonic valve. Pericardium No pericardial effusion. Aorta Normal size aortic root and proximal ascending aorta. CONCLUSIONS Normal LV function Mild pulmonary hypertension Mild right ventricular dilatation Previewed by: Dr. Galen Sanchez MD (Electronically Signed) Final Date: 14 March 2025 09:49
== END 2025-03-13 15:32 | disposition home or self-care (01) ==
LOC: EC 17:32 → INTOOBSV 20:37 → 3SCARD 20:37
PROVIDERS: ADMIT Hospitalist; ATTEND Hospitalist
DX: R55 Syncope and collapse (principal); N17.9 Acute kidney failure, unspecified; R00.1 Bradycardia, unspecified; R01.1 Cardiac murmur, unspecified; I48.91 Unspecified atrial fibrillation; F41.9 Anxiety disorder, unspecified; E78.5 Hyperlipidemia, unspecified; I10 Essential (primary) hypertension; I25.10 Atherosclerotic heart disease of native coronary artery without angina pectoris; Z79.02 Long term (current) use of antithrombotics/antiplatelets; Z79.899 Other long term (current) drug therapy; Z85.820 Personal history of malignant melanoma of skin; Z95.5 Presence of coronary angioplasty implant and graft
CPT/HCPCS: 96372 ×3; 96361; 96374; 99291; 36415; 93005; 93306; 85379; 83880; 80053 ×2; 80048; 83605; 83735; 84484 ×2; 85025 ×2; 85610; 85730; 71046; G0378 ×3; J1644 ×2; J2405